=== PATIENT | male | born 1940 | race Caucasian/White ===

== ENCOUNTER 2017-01-29 16:20 | Emergency (ER) | payer OTHER, MEDICARE ==
[~2017-01-29] VITALS: Ht 175.3 cm; Wt 79.0 kg
[~2017-01-29 16:20] MED LIST: APIX5TAB PO; CLON.1 PO; LANS30 PO; LISI-360 PO; LISI-363 PO; MORPHINE PUMP
[2017-01-29 16:22] VITALS: BP 152/84; PULSE 82; RESP 16; TEMP 97.8; O2SAT 94
--- NOTE | 2017-01-29 18:57 | PD ---
HPI Chief Complaint: GI Complaint Time Seen by Provider: 18:52 Travel History International Travel<30 days: No Contact w/Intl Traveler<30days: No Traveled to known affect area: No History of Present Illness HPI Patient is a 76-year-old male presenting to emergency for evaluation of a possible GI bleed. Patient states the last 6 days his stool has been very thick and black. He reports being on Eliquis. He does report eating raw beets in his juices. The abdominal pain, nausea, vomiting, change in bowel habits, shortness of breath or chest pain. He does state that he's had a cough for the last 2 days. But denies any fever or chills. PFSH Past Medical History Hx Anticoagulant Therapy: Yes (ELIQUIS) Arthritis: Yes (BACK HIP LEG KNEES) Anxiety: No Cancer: Yes (SKIN HANDS & FACE) Cardiovascular Problems: Yes (HYPERTENSION / A-FIB) Cerebrovascular Accident: Yes Coronary Artery Disease: Yes Diminished Hearing: No Endocrine: No Gastrointestinal Disorders: Yes GERD: Yes (PT. TAKES PROTONIX) Genitourinary: No Hypertension: Yes Immune Disorder: No Musculoskeletal: Yes (BACK PAIN) Neurologic: No Psychiatric: No Reproductive: No Respiratory: No Past Surgical History Abdominal Surgery: Yes (LT. GROIN HERNIA REPAIR WITH MESH) Body Medical Devices: MORPHINE PUMP Oral Surgery: Yes (TONSILECTOMY @ AGE 4) Pacemaker: No Other Surgery: Yes (MORPHINE PUMP, FEEDING TUBE (REMOVED)) Social History Alcohol Use: No Tobacco Use: No Substance Use: No Allergies-Medications (Allergen,Severity, Reaction): Coded Allergies: HMG-CoA Reductase Inhibitors (Verified Allergy, Intermediate, LEG CRAMPS, INSOMNIA, 01/29/17) Penicillin (Verified Allergy, Unknown, BLISTERS, 01/29/17) Reported Meds & Prescriptions Reported Meds & Active Scripts Active Reported Lansoprazole 30 Mg Capdr 30 Mg PO DAILY Clonidine (Clonidine HCl) 0.1 Mg Tab 0.1 Mg PO TID Eliquis (Apixaban) 5 Mg Tab 5 Mg PO BID Lisinopril 20 Mg Tab 20 Mg PO DAILY [Morphine Pump] Review of Systems Except as stated in HPI: all other systems reviewed are Neg General / Constitutional: No: Fever, Chills HENT: No: Headaches Cardiovascular: No: Chest Pain or Discomfort Respiratory: Positive: Cough, No: Shortness of Breath Gastrointestinal: No: Nausea, Vomiting, Diarrhea, Abdominal Pain, Hematochezia , Changes in Bowel Habits Genitourinary: No: Dysuria Musculoskeletal: No: Myalgias Physical Exam Narrative GENERAL: Well-developed, well-nourished, alert elderly gentleman. Resting comfortably in no acute distress. SKIN: Warm and dry. HEAD: Atraumatic. Normocephalic. EYES: Pupils equal and round. No scleral icterus. No injection or drainage. ENT: No nasal bleeding or discharge. Mucous membranes pink and moist. NECK: Trachea midline. No JVD. CARDIOVASCULAR: Regular rate and rhythm. No murmur appreciated. RESPIRATORY: No accessory muscle use. Coarse breath sounds noted in right and left lower lungs. GASTROINTESTINAL: Abdomen soft, non-tender, nondistended. Hepatic and splenic margins not palpable. MUSCULOSKELETAL: No obvious deformities. No clubbing. No cyanosis. No edema. NEUROLOGICAL: Awake and alert. No obvious cranial nerve deficits. Motor grossly within normal limits. Normal speech. PSYCHIATRIC: Appropriate mood and affect; insight and judgment normal. RECTAL EXAM: No masses or tenderness, stool is dark brown and thick Data Data Last Documented VS Vital Signs Date Time Temp Pulse Resp B/P Pulse Ox O2 Delivery O2 Flow Rate FiO2 01/29/17 21:42 89 18 156/82 93 01/29/17 16:22 97.8 Orders Complete Blood Count With Diff (01/29/17 18:51) Comprehensive Metabolic Panel (01/29/17 18:51) Prothrombin Time / Inr (Pt) (01/29/17 18:51) Act Partial Throm Time (Ptt) (01/29/17 18:51) Type And Screen (01/29/17 18:51) Chest, Pa & Lat (01/29/17 ) Labs Laboratory Tests Test 01/29/17 19:12 White Blood Count 7.9 TH/MM3 Red Blood Count 4.65 MIL/MM3 Hemoglobin 13.9 GM/DL Hematocrit 41.5 % Mean Corpuscular Volume 89.2 FL Mean Corpuscular Hemoglobin 29.9 PG Mean Corpuscular Hemoglobin 33.5 % Concent Red Cell Distribution Width 14.0 % Platelet Count 211 TH/MM3 Mean Platelet Volume 9.9 FL Neutrophils (%) (Auto) 68.4 % Lymphocytes (%) (Auto) 16.1 % Monocytes (%) (Auto) 9.0 % Eosinophils (%) (Auto) 5.4 % Basophils (%) (Auto) 1.1 % Neutrophils # (Auto) 5.4 TH/MM3 Lymphocytes # (Auto) 1.3 TH/MM3 Monocytes # (Auto) 0.7 TH/MM3 Eosinophils # (Auto) 0.4 TH/MM3 Basophils # (Auto) 0.1 TH/MM3 CBC Comment DIFF FINAL Differential Comment Prothrombin Time 12.7 SEC Prothromb Time International 1.1 RATIO Ratio Activated Partial 32.5 SEC Thromboplast Time Sodium Level 140 MEQ/L Potassium Level 3.6 MEQ/L Chloride Level 103 MEQ/L Carbon Dioxide Level 27.9 MEQ/L Anion Gap 9 MEQ/L Blood Urea Nitrogen 10 MG/DL Creatinine 1.02 MG/DL Estimat Glomerular Filtration 71 ML/MIN Rate Random Glucose 155 MG/DL Calcium Level 8.6 MG/DL Total Bilirubin 0.5 MG/DL Aspartate Amino Transf 24 U/L (AST/SGOT) Alanine Aminotransferase 38 U/L (ALT/SGPT) Alkaline Phosphatase 78 U/L Total Protein 6.7 GM/DL Albumin 3.6 GM/DL Blood Type A POSITIVE Antibody Screen NEGATIVE MDM Medical Decision Making Medical Screen Exam Complete: Yes Emergency Medical Condition: Yes Interpretation(s) Vital Signs Date Time Temp Pulse Resp B/P Pulse Ox O2 Delivery O2 Flow Rate FiO2 01/29/17 16:22 97.8 82 16 152/84 94 Differential Diagnosis GI bleed versus aftereffect of food versus pneumonia versus bronchitis anemia versus other Narrative Course Patient is a 76-year-old male presenting to emergency department for evaluation of black tar-like stools for the last 6 days. Additionally he reported a cough for the last 2 days. Labs and imaging ordered and pending. Stool was positive for occult blood on exam. Workup initiated in triage, care of patient will be transferred to a provider when a medical bed is available. [facility] Point of Care Fecal Specimen Occult Blood: Positive Cat Mendoza Jan 29, 2017 18:57
[2017-01-29 19:33] LABS: AUTOMATED NEUTROPHIL # 5.4 TH/MM3 (1.8-7.7); BASOPHIL # 0.1 TH/MM3 (0-0.2); BASOPHIL % 1.1 % (0.0-2.0); EOSINOPHIL # 0.4 TH/MM3 (0-0.4); EOSINOPHIL % 5.4 % (0.0-4.0); HEMATOCRIT 41.5 % (39.0-51.0); HEMO FLAGS DIFF FINAL; LYMPH % 16.1 % (9.0-44.0); LYMPHOCYTE # 1.3 TH/MM3 (1.0-4.8); MEAN CELL VOLUME 89.2 FL (80.0-100.0); MEAN CORPUSCULAR HEMOGLOBIN 29.9 PG (27.0-34.0); MEAN CORPUSCULAR HGB CONC 33.5 % (32.0-36.0); NEUT % 68.4 % (16.0-70.0); PLATELET COUNT 211 TH/MM3 (150-450); RED BLOOD COUNT 4.65 MIL/MM3 (4.50-5.90); WHITE BLOOD COUNT 7.9 TH/MM3 (4.0-11.0)
[2017-01-29] MEDS ORDERED: LISI-515 PO (19:38)
[2017-01-29] MEDS ORDERED: LANS30CA PO (19:38)
[2017-01-29] MEDS ORDERED: APIX5TAB PO (19:38)
[2017-01-29] MEDS ORDERED: CLON0.1T PO (19:38)
--- NOTE | 2017-01-29 19:44 | RADRPT ---
EXAM DATE/TIME: 01/29/2017 19:35 [facility] COMPARISON: CHEST PA & LAT, March 07, 2015, 9:23. INDICATIONS : Cough. MEDICAL HISTORY : Stroke. Atrial fibrilation. SURGICAL HISTORY : None. ENCOUNTER: Initial ACUITY: 4 - 6 days PAIN SCORE: 0/10 LOCATION: Bilateral chest FINDINGS: Mild patchy infiltrate in the right lung base. Otherwise the lungs are grossly clear. Heart size is e nlarged but stable. There is some pulmonary venous congestion. No definite pleural effusions. CONCLUSION: Mild infiltrate right lung base. Christofer Peng MD on January 29, 2017 at 19:42 Board Certified Radiologist. This report was verified electronically.
[2017-01-29 19:46] LABS: ANION GAP 9 MEQ/L (5-15); AST (GOT) 24 U/L (15-37); BICARBONATE 27.9 MEQ/L (21.0-32.0); BLOOD UREA NITROGEN 10 MG/DL (7-18); CHLORIDE 103 MEQ/L (98-107); GLOMERULAR FILTRATION RATE 71 ML/MIN (>89); POTASSIUM 3.6 MEQ/L (3.5-5.1); SODIUM (NA) 140 MEQ/L (136-145)
[2017-01-29 19:49] LABS: ALKALINE PHOSPHATASE 78 U/L (45-117); ALT (GPT) 38 U/L (12-78); TOTAL BILIRUBIN ADULT 0.5 MG/DL (0.2-1.0)
[2017-01-29 19:50] LABS: APTT (PATIENT) 32.5 SEC (24.3-30.1); INTERNATIONAL NORMALIZED RATIO 1.1 RATIO; PROTHROMBIN TIME - PATIENT 12.7 SEC (9.8-11.6)
[2017-01-29 21:42] VITALS: BP 156/82; PULSE 89; RESP 18; O2SAT 93
--- NOTE | 2017-01-29 23:21 | PD ---
Data Data Last Documented VS Vital Signs Date Time Temp Pulse Resp B/P Pulse Ox O2 Delivery O2 Flow Rate FiO2 01/29/17 21:42 89 18 156/82 93 01/29/17 16:22 97.8 Orders Complete Blood Count With Diff (01/29/17 18:51) Comprehensive Metabolic Panel (01/29/17 18:51) Prothrombin Time / Inr (Pt) (01/29/17 18:51) Act Partial Throm Time (Ptt) (01/29/17 18:51) Type And Screen (01/29/17 18:51) Chest, Pa & Lat (01/29/17 ) Labs Laboratory Tests Test 01/29/17 19:12 White Blood Count 7.9 TH/MM3 Red Blood Count 4.65 MIL/MM3 Hemoglobin 13.9 GM/DL Hematocrit 41.5 % Mean Corpuscular Volume 89.2 FL Mean Corpuscular Hemoglobin 29.9 PG Mean Corpuscular Hemoglobin 33.5 % Concent Red Cell Distribution Width 14.0 % Platelet Count 211 TH/MM3 Mean Platelet Volume 9.9 FL Neutrophils (%) (Auto) 68.4 % Lymphocytes (%) (Auto) 16.1 % Monocytes (%) (Auto) 9.0 % Eosinophils (%) (Auto) 5.4 % Basophils (%) (Auto) 1.1 % Neutrophils # (Auto) 5.4 TH/MM3 Lymphocytes # (Auto) 1.3 TH/MM3 Monocytes # (Auto) 0.7 TH/MM3 Eosinophils # (Auto) 0.4 TH/MM3 Basophils # (Auto) 0.1 TH/MM3 CBC Comment DIFF FINAL Differential Comment Prothrombin Time 12.7 SEC Prothromb Time International 1.1 RATIO Ratio Activated Partial 32.5 SEC Thromboplast Time Sodium Level 140 MEQ/L Potassium Level 3.6 MEQ/L Chloride Level 103 MEQ/L Carbon Dioxide Level 27.9 MEQ/L Anion Gap 9 MEQ/L Blood Urea Nitrogen 10 MG/DL Creatinine 1.02 MG/DL Estimat Glomerular Filtration 71 ML/MIN Rate Random Glucose 155 MG/DL Calcium Level 8.6 MG/DL Total Bilirubin 0.5 MG/DL Aspartate Amino Transf 24 U/L (AST/SGOT) Alanine Aminotransferase 38 U/L (ALT/SGPT) Alkaline Phosphatase 78 U/L Total Protein 6.7 GM/DL Albumin 3.6 GM/DL Blood Type A POSITIVE Antibody Screen NEGATIVE [facility] Medical Record Reviewed: Yes Supervised Visit with MURALI: Yes Narrative Course I, Dr. Ralph, have reviewed the advance practice practitioner's documentation and am in agreement unless otherwise dictated below , met with the patient face to face, made the diagnosis, and the medical decision making was done by me. *My assessment and Findings: The patient has had black stool for about 5 days. He offers no complaints consistent with symptomatic anemia. Workup today is revealed as below. He has close follow-up with the [facility] and will schedule a colonoscopy through his doctor, Dr. Licona, as soon as possible. He reports a colonoscopy done 4 years ago and he had 2 benign polyps and it was otherwise normal. No endoscopy was done. He takes iron. Hemoglobin is stable trended back to 2001. The patient reports also having some GERD at night typically after eating Bars. He drinks apple cider vinegar and the GERD goes away and the patient is able to sleep. The patient does take Eloquis for atrial fibrillation and has been compliant of believes he may have taken an extra dose several days prior. CBC & BMP Diagram 01/29/17 19:12 LFTs normal INR 1.1 Diagnosis Primary Impression: Black stools Additional Impression: GERD (gastroesophageal reflux disease) Qualified Code: K21.9 - Gastroesophageal reflux disease, esophagitis presence not specified Referrals: [facility] [place] 1 day Additional Instruction: You have a choice when it comes to health care, and we are glad that you chose [facility]. Hopefully, we have met your expectations on today's visit. You are welcome to return to [facility] at any time, as we are committed to meeting the health care needs of our community. Med/Other Pt SpecificInfo: No Change to Meds Disposition: 01 DISCHARGE HOME Condition: Stable Ollie Ralph MD Jan 29, 2017 23:21
== END 2017-01-29 23:59 | disposition home or self-care (01) ==
LOC: NEPC 16:20
DX: K92.1 Melena (principal); K21.9 Gastro-esophageal reflux disease without esophagitis; R05 Cough; I48.91 Unspecified atrial fibrillation; Z79.01 Long term (current) use of anticoagulants; I10 Essential (primary) hypertension
CPT/HCPCS: 71020; 80053; 85025; 85610; 85730; 86850; 86900; 86901; 99285

== ENCOUNTER → 2017-02-05 | Day surgery (SDC) | payer MEDICARE ==
[~2017-02-05] MED LIST changes: -CLON.1 PO; +CLON0.1T PO; +LACTATED RINGER'S 1,000 ML BAG IV ONE; -LANS30 PO; +LANS30CA PO; -LISI-360 PO; -LISI-363 PO; +LISI-515 PO; +PROPOFOL 500 MG/50 ML BTL IV ONE
--- NOTE | 2017-02-05 10:37 | GIPROC ---
[facility] [place] [address], [address] COLONOSCOPY PROCEDURE REPORT EXAM DATE: 02/05/2017 PATIENT NAME: Arcadio Maria MR #: [id number] BIRTHDATE: 1940 ENDOSCOPIST: Ector Potts MD ORDER #: [id number] TOMATO GRADER: Catrachita Calderon RN STATUS: outpatient INDICATIONS: The patient is a 76 yr old male here for a colonoscopy due to rectal bleeding PROCEDURE PERFORMED: Colonoscopy with polypectomy MEDICATIONS: None and Per Anesthesia. PREP QUALITY: fair ESTIMATED BLOOD LOSS: None CONSENT: The patient understands the risks and benefits of the procedure and understands that these risks include, but are not limited to: sedation, allergic reaction, infection, perforation and/or bleeding. Alternative means of evaluation and treatment include, among others: physical exam, x-rays, and/or surgical intervention. The patient elects to proceed with this endoscopic procedure. medical equipment was checked for proper function. Hand hygiene and appropriate measures for infection prevention was taken. After the risks, benefits and alternatives of the procedure were thoroughly explained, Informed consent was verified, confirmed and timeout was successfully executed by the treatment team. A digital exam revealed no abnormalities of the rectum The EC-[id number] ([id number]) endoscope was introduced through the anus and advanced to the cecum, which was identified by both the appendix and ileocecal valve. The instrument was then slowly withdrawn as the colon was fully examined. COLON FINDINGS: Three small medium sized large smooth sessile polyps were found at the cecum, in the distal transverse colon, and rectum. A polypectomy was performed using snare cautery. The resection was complete and the polyp tissue was completely retrieved. Moderate diverticulosis was noted throughout the entire examined colon. The colon mucosa was otherwise normal. Retroflexed views revealed internal hemorrhoids and Retroflexed views revealed small internal hemorrhoids The scope was then completely withdrawn from the patient and the procedure terminated. PROCEDURE WITHDRAWAL TIME:12.3minutes ADVERSE EVENTS: There were no complications. IMPRESSIONS: 1. Three small medium sized large sessile polyps were found at the cecum, in the distal transverse colon, and rectum; polypectomy was performed using snare cautery 2. Moderate diverticulosis was noted throughout the entire examined colon 3. The colon mucosa was otherwise normal 4. Retroflexed views revealed internal hemorrhoids 5. Retroflexed views revealed small internal hemorrhoids 6. Revealed no abnormalities of the rectum RECOMMENDATIONS: 1. Await biopsy results. Biopsy results will not be ready for 7-10 days. If you don't hear from us in two weeks, call our office for results. 2. High fiber diet 3. Yearly hemoccult 4. Follow-up: [facility] Clinic 4 week(s) RECALL: Return 5 years Colonoscopy Ector Potts MD eSigned: Ector Potts MD 02/05/2017 10:36 AM cc: Kriss Garcia PATIENT NAME: Arcadio Maria MR#: [id number]
== END | disposition home or self-care (01) ==
LOC: ESDC 08:26
PROVIDERS: ATTEND Internal Medicine Gastroenterology
DX: K92.1 Melena (principal); K62.1 Rectal polyp; D12.0 Benign neoplasm of cecum; D12.3 Benign neoplasm of transverse colon; K57.90 Diverticulosis of intestine, part unspecified, without perforation or abscess without bleeding; R13.10 Dysphagia, unspecified; K22.9 Disease of esophagus, unspecified; K22.4 Dyskinesia of esophagus; K22.2 Esophageal obstruction; K29.70 Gastritis, unspecified, without bleeding; K44.9 Diaphragmatic hernia without obstruction or gangrene
CPT/HCPCS: 00740; 00810; 43239; 43248; 45385; 88305; 88312; J3010; J7120